=== PATIENT | male | born 2000 | race Caucasian/White ===

== ENCOUNTER 2020-08-11 20:10 | Emergency (ER) | payer BC ==
[~2020-08-11] VITALS: Ht 180.3 cm; Wt 65.8 kg
[2020-08-11 21:20] LABS: CREATININE 0.9 mg/dL (0.6-1.3); POTASSIUM 4.2 mmol/L (3.5-5.1)
[2020-08-11 21:25] LABS: ALBUMIN 4.4 g/dL (3.4-5.0); TOTAL BILIRUBIN 0.6 mg/dL (<0.1-1.0); TOTAL PROTEIN 7.5 g/dL (6.4-8.2)
[2020-08-11 21:26] LABS: ABSOLUTE EOSINOPHILS 0.3 thou/uL (0.0-0.7); ABSOLUTE LYMPHOCYTES 1.5 thou/uL (0.8-5.3); ABSOLUTE MONOCYTES 0.7 thou/uL (0.0-1.2); ABSOLUTE NEUTROPHILS 3.1 thou/uL (1.6-8.1); BASOPHILS 0.8 %; EOSINOPHILS 5.5 %; HEMATOCRIT 43.7 % (42.0-52.0); HEMOGLOBIN 15.1 gm/dL (14.0-18.0); MCH 30.2 pg (26.0-34.0); MCHC 34.5 g/dL (28.0-37.0); MCV 87.6 fL (80.0-100.0); MONOCYTES 11.7 %; MPV 7.8 fl. (7.2-11.1); NUCLEATED RBCS 0 /100WBC; PLATELET COUNT* 223 thou/uL (150-400); RBC 4.98 mil/uL (4.50-6.00); RDW-CV 13.3 % (10.5-14.5); WBC 5.6 thou/uL (4.0-11.0)
[2020-08-11 21:39] LABS: URINE BILIRUBIN NEGATIVE (Negative); URINE BLOOD NEGATIVE (Negative); URINE CLARITY CLEAR; URINE COLOR YELLOW; URINE GLUCOSE-RANDOM NEGATIVE (Negative); URINE KETONES NEGATIVE (Negative); URINE LEUKOCYTES-REFLEX NEGATIVE (Negative); URINE NITRITE-REFLEX NEGATIVE (Negative); URINE PROTEIN NEGATIVE (Negative); URINE SPECIFIC GRAVITY <= 1.005 (1.005-1.030); URINE UROBILINOGEN 0.2 E.U./dl (0.2-1.0)
[2020-08-11 22:26] VITALS: BP 120/69
--- NOTE | 2020-08-12 11:50 | EKG ---
[place] [address] ELECTROCARDIOGRAM REPORT Name: JAQUELINE VILARITESH Kim Room: [facility]#: [id number] Admission: 08/11/20 Attend Phys: Discharge: 08/11/20 Date of : 89 Date of Service: 08/11/202023 Report #: [id number] THIS REPORT FOR: //name// [facility] [place] ED Test Date: 2020-08-11 Test Time: 20:24:53 Pat Name: HAYLEE VILA Department: Room: Gender: Correctional Officer: : 2000 Requested By: Jyothi Ho Order Number: [id number] Collin MD: Rocael Badillo Measurements Intervals [place] Rate: 59 P: 66 AL: 172 QRS: 84 QRSD: 110 T: 62 QT: 443 QTc: 439 Interpretive Statements Sinus rhythm ST elev, probable normal early repol pattern Artifact in lead(s) I,aVR,aVL,V1 No previous ECG available for comparison Electronically Signed On 08-12-2020 11:50:37 CDT by Rocael Badillo [email or web address] <ELECTRONICALLY SIGNED> By: Rocael Badillo MD, FAC 08/12/20 1150 23 23 Rocael Badillo MD, [facility] /EPI
== END 2020-08-11 22:27 | disposition home or self-care (01) ==
LOC: M.ERS 20:10
PROVIDERS: Personal Emergency Response Attendant
DX: R00.2 Palpitations (principal); Z20.822 Contact with and (suspected) exposure to COVID-19; E86.0 Dehydration